=== PATIENT | male | born 1945 | race Caucasian/White ===

== ENCOUNTER → 2016-04-27 | Outpatient (CLI) | payer MEDICARE, OTHER | END | disposition home or self-care (01) | LOC: GMAB 10:54 | PROVIDERS: ATTEND Family Medicine | DX: Z12.5 Encounter for screening for malignant neoplasm of prostate (principal); R53.82 Chronic fatigue, unspecified; I10 Essential (primary) hypertension | CPT/HCPCS: 84403; 84443; G0103 ==

== ENCOUNTER → 2017-06-21 | Outpatient (CLI) | payer MEDICARE, OTHER | END | disposition home or self-care (01) | LOC: GMAB 10:47 | PROVIDERS: ATTEND Family Medicine | DX: Z12.5 Encounter for screening for malignant neoplasm of prostate (principal); I10 Essential (primary) hypertension | CPT/HCPCS: 84443; G0103 ==

== ENCOUNTER → 2018-09-09 | Outpatient (CLI) | payer MEDICARE, OTHER | LOC: GMAE 10:45 | PROVIDERS: ATTEND Family Medicine | DX: I10 Essential (primary) hypertension (principal); E11.9 Type 2 diabetes mellitus without complications; E78.2 Mixed hyperlipidemia ==

== ENCOUNTER → 2018-10-21 | Outpatient (CLI) | payer MEDICARE, OTHER ==
--- NOTE | 2018-10-21 10:07 | RAD ---
PROVIDED CLINICAL HISTORY/REASON FOR EXAM: M25.511 Findings: Number of images: 4 Location: Right shoulder No acute fracture or dislocation. Mild acromioclavicular osteoarthritis. Soft tissues are unremarkable. Subacromial space is maintained. Visualized chest is clear. Mild glenohumeral osteoarthritis. IMPRESSION: No evidence of acute process in the right shoulder. Electronically signed by: Eliud Tavarez MD 10/21/2018 10:06 AM CDT
== END ==
LOC: RAD 08:44
PROVIDERS: ATTEND Orthopaedic Surgery
DX: M25.511 Pain in right shoulder (principal)

== ENCOUNTER → 2018-11-04 | Outpatient (CLI) | payer MEDICARE, OTHER | LOC: GMATM 18:55 | PROVIDERS: ATTEND Nurse Practitioner Family | DX: M25.439 Effusion, unspecified wrist (principal) ==

== ENCOUNTER → 2018-11-11 | Outpatient (CLI) | payer MEDICARE, OTHER | LOC: MRI 10:00 | PROVIDERS: ATTEND Orthopaedic Surgery | DX: M75.101 Unspecified rotator cuff tear or rupture of right shoulder, not specified as traumatic (principal); M19.011 Primary osteoarthritis, right shoulder; M75.21 Bicipital tendinitis, right shoulder; M77.9 Enthesopathy, unspecified; M75.51 Bursitis of right shoulder ==

== ENCOUNTER → 2019-01-13 | Outpatient (CLI) | payer MEDICARE, OTHER | LOC: LAB.O 10:21 | PROVIDERS: ATTEND Orthopaedic Surgery | DX: Z01.818 Encounter for other preprocedural examination (principal) ==

== ENCOUNTER 2019-01-24 05:48 | Day surgery (SDC) | payer MEDICARE, OTHER ==
--- NOTE | 2019-01-16 09:16 | HP ---
CHIEF COMPLAINT: Right shoulder pain. HISTORY OF PRESENT ILLNESS: Mr. Aguilar is a 73-year-old male with a history of right shoulder pain that has been going on for years. He says the pain radiates anywhere from a 1 to a 7 in intensity. He has had conservative measures, however, has failed to gain relief. He says it bothers him on a daily basis with activity. It is sharp and can be at any time. That said, there is a baseline almost continual aching in the shoulder. Mr. Aguilar's MRI shows a rotator cuff tear. After discussing the risks, benefits and alternatives to rotator cuff repair, he has given informed consent. PAST SURGICAL HISTORY: 1. Multiple hand surgeries. MEDICATIONS: 1. Vitamin C. 2. Hydrochlorothiazide. 3. Valsartan. 4. Metformin. 5. Glucosamine. PAIN CONTRACT: None. ALLERGIES: NO KNOWN DRUG ALLERGIES. CODE STATUS: Full code. IMMUNIZATIONS: Up to date. SOCIAL HISTORY: The patient does not drink, smoke or use any illicit drugs. FAMILY HISTORY: None pertinent to today's complaint. REVIEW OF SYSTEMS: Negative except as indicated in the History of Present Illness. HEENT: The patient reports no symptoms. RESPIRATORY: The patient reports no symptoms. CARDIOVASCULAR: The patient reports no symptoms. GASTROINTESTINAL: The patient reports no symptoms GENITOURINARY: The patient reports no symptoms. MUSCULOSKELETAL: Negative except as noted in History of Present Illness. SKIN: The patient reports no symptoms. NEUROLOGIC: The patient reports no symptoms. PHYSICAL EXAMINATION: VITAL SIGNS: Blood pressure 134/82. Pulse 73. Height 5'9". Weight 188 pounds. MENTAL STATUS: The patient is awake, alert, and is able to give a good history and participate in the physical. The patient is oriented to person, place and time. SKIN: Normal tone and turgor. HEENT: Normocephalic, atraumatic. Pupils equal, round and reactive. Mucosal membranes are moist. NECK: Normal range of motion. No thyromegaly, no lymphadenopathy. CHEST: Normal respiratory excursion. CARDIAC: Regular rate and rhythm. No murmurs, rubs or gallops. MUSCULOSKELETAL: The bilateral lower extremities show full active range of motion without pain. He has intact sensation. There is no deformity. Both extremities are warm and well perfused. He walks with a normal gait. He has no malalignment. Strength is 5/5 in both extremities. The left upper extremity shows full range of motion in the shoulder, elbow, wrist and digits. Sensation is intact and it is warm and well perfused. He has negative belly press maneuver. He has a negative Neer and negative Gonzáles. Sensation is equivalent to the contralateral side. Reflexes are 2+. The right side shows full active abduction, but he has severe pain beginning at about 120 degrees. 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 He maintains full forward flexion. He has a negative belly press maneuver. He has pain to palpation in the subacromial space as well as the acromioclavicular joint. He has pain with cross-chest adduction. He has positive Neer and positive Gonzáles on the right and negative Neer and negative Gonzáles on the left. Internal rotation is to about L4. Extraocular is to about 30 degrees. RADIOLOGY: My interpretation of the x-rays shows some acromioclavicular joint arthritis. My interpretation of the MRI shows full thickness rotator cuff tear involving the supraspinatus. He has confirmation of acromioclavicular joint arthritis. ASSESSMENT: 1. Rotator cuff tear. PLAN: The plan at this point is for rotator cuff repair. We have discussed the risks, benefits, and alternatives to that and the patient has given informed consent. #[id number] [facility]
[2019-01-24] MEDS ORDERED: SODIUM CHL 0.9% 100ML MINI-BAG 100 ML IVPB ONE (06:13)
[2019-01-24] MEDS ORDERED: LACTATED RINGERS 1,000 ML ONE ×2 (06:13→10:01)
[2019-01-24] MEDS ORDERED: BUPIVACAINE LIPOSOME 13.3 MG/ML VIAL INJ ONE (06:49)
[2019-01-24] MEDS ORDERED: BUPIVACAINE 0.5% 30 ML VIAL INJ ONE ×2 (06:49→09:59)
[2019-01-24] MEDS ORDERED: SUGAMMADEX SODIUM 200 MG/2 ML VIAL IV ONE (09:58)
[2019-01-24] MEDS ORDERED: ROCURONIUM BROMIDE 10 MG/ML VIAL ONE (09:59)
[2019-01-24] MEDS ORDERED: fentaNYL CITRATE INJ 50 MCG/ML AMP ONE (09:59)
[2019-01-24] MEDS ORDERED: MIDAZOLAM INJ 2 MG/2 ML VIAL ONE (09:59)
[2019-01-24] MEDS ORDERED: DEXAMETHASONE INJ 10 MG/ML VIAL IV ONE (10:00)
[2019-01-24] MEDS ORDERED: PROPOFOL 200 MG/20 ML VIAL IV ONE (10:00)
[2019-01-24] MEDS ORDERED: ONDANSETRON INJ 4 MG/2 ML VIAL IV ONE (10:00)
[2019-01-24] MEDS: ceFAZolin SODIUM 1 GM VIAL ONE ×4 (10:24→12:24)
[2019-01-24] MEDS: VANCOMYCIN HCL INJ 1,000 MG VIAL IVPB ONE ×2 (11:21→12:24)
[2019-01-24 15:53] VITALS: BP 124/75; TEMP 98.7; O2SAT 91
--- NOTE | 2019-01-26 08:33 | OP ---
DATE OF PROCEDURE: 01/24/19 PREOPERATIVE DIAGNOSIS: 1. Right rotator cuff tear. 2. Impingement. POSTOPERATIVE DIAGNOSIS: 1. Right rotator cuff tear. 2. Impingement. PROCEDURE: 1. Rotator cuff repair. 2. Acromioplasty. SURGEON: Boy Christy MD. CHEMICAL TANK WORKER: Myron Jeong CST, SA-C. ANESTHESIA: General anesthesia. COMPLICATIONS: None. FINDINGS: 1. Full thickness tear with retraction to approximately the level of the acromioclavicular joint of the supraspinatus. 2. Overhanging acromion. INDICATION: Mr. Aguilar has a long history of pain in the shoulder associated with rotator cuff tear. Because of his ongoing pain and failure of conservative measures, he has requested operative intervention. After discussing the risks, benefits and alternatives to the aforementioned procedures, the patient has given informed consent. PROCEDURE: The patient was brought to the Operating Room and placed in the supine position. General anesthesia was induced.The patient's arm and shoulder were sterilely prepped and draped. Following prepping and draping, an incision was made at the lateral border of the acromion. Full thickness skin flaps were developed. After that, the deltoid was identified. A split was made between the anterior and middle heads of the deltoid. A partial acromioplasty was performed and the rotator cuff was identified. Following identification of the rotator cuff, the area of the anatomic insertion was debrided. The rotator cuff tendon was mobilized and the leading edge was debrided. Four suture anchors were used to make a SpeedBridge construct. The arm was taken through a range of motion and there was no gross movement at the repair site. The wound was very thoroughly irrigated and the deltoid was reapproximated. The skin was closed with a combination of running and interrupted subcuticular stitches, followed by Nylon. Sterile dressing was placed. The patient was awoken from anesthesia and taken to Recovery. POSTOPERATIVE PLAN: He will be limited with regards to motion for at least 6 weeks. He had a severe retracted tear and I am afraid that he would lead to repeat tearing if we let him go too early. We will see him back in 2 days and I will discuss this further with him. [facility][id number] [facility]
== END 2019-01-24 15:50 | disposition home or self-care (01) ==
LOC: AMB 05:48
PROVIDERS: ATTEND Orthopaedic Surgery
DX: M75.101 Unspecified rotator cuff tear or rupture of right shoulder, not specified as traumatic (principal); M75.42 Impingement syndrome of left shoulder; I10 Essential (primary) hypertension; E11.9 Type 2 diabetes mellitus without complications; Z79.84 Long term (current) use of oral hypoglycemic drugs; Z79.899 Other long term (current) drug therapy
CPT/HCPCS: 01630; 0232T; 23420; 36416; 82948; J0690; J1100; J2250; J2405; J3010; J3370; J3490; J7050; J7120

== ENCOUNTER → 2019-10-10 | Outpatient (CLI) | payer MEDICARE, OTHER | LOC: GMAE 10:51 | PROVIDERS: ATTEND Family Medicine | DX: Z12.5 Encounter for screening for malignant neoplasm of prostate (principal); I10 Essential (primary) hypertension; E11.9 Type 2 diabetes mellitus without complications; E78.2 Mixed hyperlipidemia | CPT/HCPCS: 84443; G0103 ==

== ENCOUNTER → 2020-01-24 | Outpatient (CLI) | payer MEDICARE, OTHER | LOC: GMAE 17:29 | PROVIDERS: ATTEND Family Medicine | DX: N30.00 Acute cystitis without hematuria (principal) ==

== ENCOUNTER → 2020-01-29 | Outpatient (CLI) | payer MEDICARE, OTHER | LOC: LAB.O 11:17 | PROVIDERS: ATTEND Family Medicine | DX: N20.9 Urinary calculus, unspecified (principal) ==